=== PATIENT | male | born 2000 | race Two or more races ===

== ENCOUNTER 2021-09-11 22:06 | Emergency (ER) | payer BC, OTHER ==
[~2021-09-11] VITALS: Ht 180.3 cm; Wt 86.2 kg
[2021-09-11 23:24] LABS: Nucleated Red Blood Cells % 0.1 %; White Blood Cell 12.4 10^3/uL (4.4-10.8)
[2021-09-11 23:26] LABS: Basophils # (auto) 0.1 10 ^3/uL (0-0.2); Basophils % (auto) 0.6 % (0.0-2.0); Eosinophils # (auto) 0 10 ^3/uL (0-0.8); Eosinophils % (auto) 0.3 % (0.0-7.0); Hematocrit 49.4 % (41.0-53.0); Lymphocytes # (auto) 1.6 10 ^3/uL (0.4-5.4); Lymphocytes % (auto) 13.1 % (10.0-50.0); Mean Corpuscular Hemoglobin 34.4 pg (28.0-32.0); Mean Corpuscular Hgb Conc. 34.4 g/dL (32.0-36.0); Monocytes # (auto) 0.6 10 ^3/uL (0-1.3); Monocytes % (auto) 4.5 % (0.0-12.0); Neutrophils # (auto) 10.1 10 ^3/uL (1.6-8.6); Neutrophils % (auto) 81.5 % (37.0-80.0); Red Blood Cells 4.94 10^6/uL (4.5-5.90); Red Cell Distribution Width 12.9 % (11.8-14.3)
[2021-09-11 23:43] LABS: Albumin 4.2 g/dL (3.4-5.0); BUN/Creatinine Ratio 10.8; Calcium 9.2 mg/dL (8.5-10.1)
[2021-09-11 23:48] LABS: Bilirubin, Total 0.5 mg/dL (0.2-1.0); Total Protein 7.6 g/dL (6.4-8.2)
[2021-09-12 01:03] VITALS: BP 110/68
== END 2021-09-12 01:50 | disposition home or self-care (01) ==
LOC: ER 22:06
DX: G44.309 Post-traumatic headache, unspecified, not intractable (principal); F12.10 Cannabis abuse, uncomplicated
CPT/HCPCS: 36415; 70450; 71045; 80053; 84484; 85025; 93005

== ENCOUNTER → 2022-05-09 | Outpatient (CLI) | payer BC ==
[2022-05-09 11:04] LABS: Basophils # (auto) 0.1 10 ^3/uL (0-0.2); Basophils % (auto) 0.7 % (0.0-2.0); Eosinophils # (auto) 0 10 ^3/uL (0-0.8); Eosinophils % (auto) 0.4 % (0.0-7.0); Hematocrit 40.8 % (41.0-53.0); Hemoglobin 13.8 g/dL (13.5-17.5); Lymphocytes # (auto) 1.6 10 ^3/uL (0.4-5.4); Lymphocytes % (auto) 20.2 % (10.0-50.0); Mean Corpuscular Hemoglobin 33.5 pg (28.0-32.0); Mean Corpuscular Hgb Conc. 33.7 g/dL (32.0-36.0); Mean Corpuscular Volume 99.4 fL (80.0-100.0); Monocytes # (auto) 0.6 10 ^3/uL (0-1.3); Monocytes % (auto) 7.2 % (0.0-12.0); Neutrophils # (auto) 5.8 10 ^3/uL (1.6-8.6); Neutrophils % (auto) 71.5 % (37.0-80.0); Nucleated Red Blood Cells % 0.1 %; Red Blood Cells 4.11 10^6/uL (4.5-5.90); Red Cell Distribution Width 12.6 % (11.8-14.3); White Blood Cell 8.1 10^3/uL (4.4-10.8)
[2022-05-09 12:01] LABS: Albumin 3.2 g/dL (3.4-5.0); BUN/Creatinine Ratio 35.3; Bilirubin, Total 0.5 mg/dL (0.2-1.0); Calcium 9.5 mg/dL (8.5-10.1); Total Protein 7.9 g/dL (6.4-8.2)
== END | disposition home or self-care (01) ==
LOC: LAB 10:47
PROVIDERS: ATTEND Internal Medicine
DX: R07.9 Chest pain, unspecified (principal); R04.0 Epistaxis
CPT/HCPCS: 36415; 80053; 83036; 85025; 85379; 85652

== ENCOUNTER 2024-08-02 12:23 | Emergency (ER) | payer BC, MEDICAID ==
[~2024-08-02] VITALS: Ht 180.3 cm; Wt 88.1 kg
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
[2024-08-02 13:40] VITALS: BP 133/61; PULSE 92; RESP 20; TEMP 98.2; O2SAT 95
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
[2024-08-02] MEDS: ACETAMINOPHEN 325 MG TAB PO ONE (14:20)
== END 2024-08-02 14:34 | disposition home or self-care (01) ==
LOC: ER 12:23
DX: S83.91XA Sprain of unspecified site of right knee, initial encounter (principal); S00.83XA Contusion of other part of head, initial encounter; V89.2XXA Person injured in unspecified motor-vehicle accident, traffic, initial encounter; Y93.89 Activity, other specified; Y92.410 Unspecified street and highway as the place of occurrence of the external cause; Y99.8 Other external cause status
CPT/HCPCS: 70450; 71046; 73562